=== PATIENT | female | born 1955 | race Caucasian/White ===

== ENCOUNTER 2017-10-22 18:10 | Emergency (ER) | payer OTHER ==
[2017-10-22 18:40] VITALS: BP 116/82
--- NOTE | 2017-10-22 19:33 | UC ---
Laceration HPI - HPI Summary HPI Summary: patient states she drank alcohol and felt dizzy falling on the pavement this afternoon. Patient denies LOC, dizziness, blurred vision. States wound does not hurt that much anymore. Denies tendernesson cheek bones - History Of Current Complaint Chief Complaint: UCLaceration Stated Complaint: FOREHEAD LAC FROM FALL Time Seen by Provider: 10/22/17 18:53 Hx Obtained From: Patient Hx Last Menstrual Period: post Laceration Location: Face Onset/Duration: Sudden Onset, Lasting Hours Severity: Moderate Pain Intensity: 6 Aggravating Factors: Nothing - Allergies/Home Medications Allergies/Adverse Reactions: Allergies Allergy/AdvReac Type Severity Reaction Status Date / Time No Known Allergies Allergy Verified 10/22/17 18:41 Home Medications: Home Medications Lisinopril 5 mg PO DAILY 10/22/17 [History Confirmed 10/22/17] PMH/Surg Hx/FS Hx/Imm Hx Cardiovascular History: Hypertension - Surgical History Surgical History: Yes Surgery Procedure, Year, and Place: tonsil - Family History Known Family History: Positive: Hypertension - Social History Alcohol Use: Occasionally Alcohol Amount: tequilla today, pt states too much Substance Use Type: None Smoking Status (MU): Never Smoked Tobacco Review of Systems Constitutional: Negative All Other Systems Reviewed And Are Negative: Yes Physical Exam Triage Information Reviewed: Yes Appearance: Well-Appearing, No Pain Distress, Well-Nourished Vital Signs: Initial Vital Signs Temp 99 F 10/22/17 18:33 Pulse 66 10/22/17 18:33 Resp 16 10/22/17 18:33 BP 116/82 10/22/17 18:33 Pulse Ox 100 10/22/17 18:33 Vital Signs Reviewed: Yes Eyes: Positive: Conjunctiva Clear ENT: Positive: Normal ENT inspection Neck: Positive: Supple, Nontender, No Lymphadenopathy Respiratory: Positive: Chest non-tender Cardiovascular: Positive: Pulses Normal, Brisk Capillary Refill Abdomen Description: Positive: Nontender Skin Exam: Other - laceration along superolateral rim of right orbit 1.8cm in length, minimal bleeding, no surrounding hematoma Laceration Repair - Laceration Repair 1 Description: Linear Laceration Size After Repair: Length (cm) - 1.8cm Modified For Repair: No Cleansing Completed Via Routine Prep: Yes Closure Material: Skin Adhesive, SteriStrips Suture Of: Skin Laceration Course/Dx - Course/Dx Course Of Treatment: laceration repaired using skin adhessive and steristrips, wound care instructions given to patient. She states her Tetanus vaccine is up to date, follow up with PCP in 1 week - Differential Dx - Laceration/Wound Provider Diagnoses: laceration right orbital rim Discharge - Sign-Out/Discharge Documenting (check all that apply): Discharge/Admit/Transfer - Discharge Plan Condition: Good Disposition: HOME Patient Education Materials: Laceration (ED), Steristrips (ED), Skin Adhesive Care (ED) Referrals: Fátima Benítez RN [Primary Care Provider] - - Billing Disposition and Condition Condition: GOOD Disposition: Home Images Head: 1 - laceration 1.8cm in length
== END 2017-10-22 19:26 | disposition home or self-care (01) ==
LOC: UCEAST 18:10
DX: S05.41XA Penetrating wound of orbit with or without foreign body, right eye, initial encounter (principal); W18.30XA Fall on same level, unspecified, initial encounter; Y93.9 Activity, unspecified; Y92.480 Sidewalk as the place of occurrence of the external cause; I10 Essential (primary) hypertension; Z82.49 Family history of ischemic heart disease and other diseases of the circulatory system
CPT/HCPCS: 12011; 12020; 99212; G0463